=== PATIENT | female | born 2000 | race Two or more races ===

== ENCOUNTER 2018-04-28 16:38 | Emergency (ER) | payer OTHER ==
--- NOTE | 2018-04-28 17:39 | ED ---
GI/ HPI - HPI Summary HPI Summary: This patient is a 17 year old F presenting to [facility] with a chief complaint of gross hematuria that began today at 1200pm. Patient states that the hematuria begin after having sex today. She states it was the second urination after intercourse. Pt states the intercourse was not painful, except that it felt like he "went deep". Pt denies any trauma during intercourse. The patient rates the pain 0/10 in severity at present. Symptoms aggravated by urination. Symptoms alleviated by nothing. Patient reports dysuria, abd pain (resolved), and increased urinary frequency. Patient denies fever, vaginal bleeding, and back pain. Patient denies a history of UTI or kidney stones. Patient reports her last menstrual period occurring on 04/11/2018 was normal. . No hx STD' s. - History of Current Complaint Chief Complaint: EDUrogenitalProblems Time Seen by Provider: 04/28/18 17:29 Stated Complaint: URINATING BLOOD Hx Obtained From: Patient Hx Last Menstrual Period: 04/11/18 Onset/Duration: Started Hours Ago, Atraumatic, Still Present Timing: Constant Severity: Mild Current Severity: Mild Pain Intensity: 0 Location of Pain: Suprapubic - earlier today, resolved now Pain Characteristics: Burning - resolved now Associated Signs and Symptoms: Positive: Hematuria, Dysuria, Abdominal Pain, Other: - Positive increased urinary frequency. Negative vaginal bleeding. Negative: Back Pain, Fever, Dyspureunia Additional Signs & Symptoms: Positive: - 0, Para - 0, First Day of Last Menstral Period - 04/11/18, Menses Regular. Negative: Genital Swelling, Vaginal Bleeding, Vaginal Discharge, STD Aggravating Factor(s): Urination Alleviating Factor(s): Nothing - Allergy/Home Medications Allergies/Adverse Reactions: Allergies Allergy/AdvReac Type Severity Reaction Status Date / Time No Known Allergies Allergy Verified 04/28/18 18:04 PMH/Surg Hx/FS Hx/Imm Hx Previously Healthy: Yes History: Reports: Other Problems/Disorders - Negative UTI Denies: Hx Kidney Stones Opthamlomology History: Denies: Hx Legally Blind EENT History: Denies: Hx Deafness - Surgical History Surgery Procedure, Year, and Place: [place] teeth removal Hx Anesthesia Reactions: No Infectious Disease History: No Infectious Disease History: Denies: Traveled Outside the [place] in Last 30 Days - Family History Known Family History: Positive: Hypertension, Other - Negative kidney stones - Social History Occupation: Student Lives: Dormitory/Roommates Alcohol Use: None Hx Substance Use: No Substance Use Type: Reports: None Hx Tobacco Use: No Smoking Status (MU): Never Smoked Tobacco Review of Systems Negative: Fever Cardiovascular: Negative Respiratory: Negative Positive: Abdominal Pain Genitourinary: Other - Negative vaginal bleeding Positive: dysuria, frequency, hematuria Positive: Other - Negative back pain Skin: Negative Neurological: Negative Psychological: Normal All Other Systems Reviewed And Are Negative: Yes Physical Exam - Summary Physical Exam Summary: Appearance: Well-appearing, no pain distress, well-nourished Skin: Warm, color reflects adequate perfusion, dry Head: Normal Head/Face inspection, atraumatic Eyes: Conjunctiva clear ENT: Normal inspection Neck: Supple, no nodes, no JVD Respiratory: Lungs clear, normal breath sounds, no respiratory distress Cardio: RRR, No murmur, pulses normal, brisk capillary refill Abdomen: Soft, nontender, no masses, no distension Bowel sounds: Present Musculoskeletal: Strength Intact/ROM intact, no calf tenderness, no edema. No CVA tenderness Pelvic Exam: Saundra present as electroencephalographic technician. External genitalia were normal, no blood in vagina, cervix was minimally eroded but was nontender, uterus was normal and nontender. Adnexae without masses or tenderness Psychological: Normal Neuro: Alert, muscle tone normal, no focal deficit Triage Information Reviewed: Yes Vital Signs On Initial Exam: Initial Vitals Temp Pulse Resp BP Pulse Ox 98.2 F 85 14 131/66 100 04/28/18 16:45 04/28/18 16:45 04/28/18 16:45 04/28/18 16:45 04/28/18 16:45 Vital Signs Reviewed: Yes Diagnostics - Vital Signs Vital Signs Temp Pulse Resp BP Pulse Ox 04/28/18 16:45 98.2 F 85 14 131/66 100 - Laboratory Result Diagrams: 04/28/18 17:37 04/28/18 17:37 Lab Statement: Any lab studies that have been ordered have been reviewed, and results considered in the medical decision making process. Re-Evaluation - Re-Evaluation First Eval Re-Evaluation Time: 17:52 Change: Unchanged Comment: Pelvic exam was performed. Second Eval Re-Evaluation Time: 19:23 Change: Improved Comment: Patient is pain free and is agreeable with discharge GIGU Course/Dx - Course Course Of Treatment: This patient is a 17 year old F presenting to [facility] with a chief complaint of hematuria that began today at 1200. Patient states that the hematuria begin after having sex. Physical Exam Findings: Pelvic Exam: Saundra present as electroencephalographic technician. External genitalia were normal, no blood in vagina, cervix was minimally eroded but was nontender, uterus was normal and nontender. Adnexae without masses or tenderness. Bloodwork and UA obtained. Pelvic cultures were sent. WBC count is elevated. Renal function is normal. HCG is negative. Urine has wbc's and rbc's, negative nitrates. Will treat since pt was symptomatic, and had gross hematuria. In the ED course the patient was given Bactrim. Patient will be discharged with prescription for Bactrim and with follow up from [facility]. Pt is advised of pending pelvic cultures and urine culture. The patient is agreeable with this plan. - Diagnoses Differential Diagnoses - Female: Cervicitis, Ovarian Cyst, Pelvic Inflammatory Disease, Pyelonephritis, Renal Calculi, Renal Colic, STD, Urinary Tract Infection, Ureteral Calculi Provider Diagnoses: UTI (urinary tract infection), Hematuria Discharge - Sign-Out/Discharge Documenting (check all that apply): Patient Departure - Discharge home - Discharge Plan Condition: Stable Disposition: HOME Prescriptions: Sulfamethox/Trimethoprim DS* [Bactrim DS 800/160 TAB*] 1 tab PO BID #10 tab Patient Education Materials: Urinary Tract Infection in Women (ED), Hematuria ( ED) Forms: *Physical Education Release [place] [facility] [place] [Primary Care Provider] - 1 Day Additional Instructions: The testing done today showed an elevated white blood cell count, consistent with infection, and also blood and white cells in your urine, consistent with a urinary tract infection. The urine culture is pending at the time you are discharged, and takes about 2 days for the final result. We will contact you if you need additional treatment based on these results. You have been given your first dose of Bactrim DS as the initial treatment for the UTI. You should continue this medication twice a day for 5 full days. There was also blood in your urine, which may be due to the urinary tract infection, but if the blood continues you will need further evaluation for this also. Your kidney function was normal today, and your test was negative. Your pelvic exam was normal today also. There are pelvic cultures pending at the time you are discharged. We will contact you if you need further treatment based on these results also, which should be available in a few days. Dr. Hernandes also recommends that you should have your initial screening PAP smear , which this pelvic exam did not include. Return to the ER if you have any new or worsening symptoms. - Billing Disposition and Condition Condition: STABLE Disposition: Home - Attestation Statements Document Initiated by Any: Yes Documenting Scribe: Lisset Nation Provider For Whom Any is Documenting (Include Credential): Dr. Samantha Hernandes MD Scribe Attestation: Lisset Paz, scribed for Dr. Samantha Hernandes MD on 04/28/18 at 2107. Scribe Documentation Reviewed: Yes Provider Attestation: The documentation as recorded by the Lisset madison accurately reflects the service I personally performed and the decisions made by me, Dr. Samantha Hernandes MD
[2018-04-28 17:51] LABS: ABS Basophils 0.1 10^3/ul (0-0.2); ABS Eosinophils 0.1 10^3/ul (0-0.6); ABS Lymphocytes 1.8 10^3/ul (1.0-4.8); ABS Monocytes 1.1 10^3/ul (0-0.8); ABS Neutrophils 10.8 10^3/ul (1.5-7.7); ABS Nucleated RBC 0 10^3/ul; Eosinophil % 1.1 % (0-6); Hematocrit 39 % (35-47); Hemoglobin 12.5 g/dl (12.0-16.0); Lymphocyte % 13.2 % (25-47); Mean Corpuscular HGB Conc 32 g/dl (31-36); Mean Corpuscular Hemoglobin 26 pg (27-31); Mean Corpuscular Volume 82 fL (80-97); Mean Platelet Volume 9.2 um3 (7.4-10.4); Nucleated Red Blood Cells % 0; Platelet Count 199 10^3/ul (150-450); Red Blood Count 4.79 10^6/ul (4.00-5.40); Red Cell Distribution Width 14 % (10.5-15)
[2018-04-28 18:07] LABS: EGFR Non-African American 79.6 (>60)
[2018-04-28 18:26] LABS: Urine Appearance Cloudy; Urine Blood 3+ (Negative); Urine Color Yellow; Urine Ketones Negative (Negative); Urine Protein 2+(100 mg/dL) (Negative); Urine Red Blood Cell 3+(>10/hpf) (Absent); Urine Specific Gravity 1.025 (1.010-1.030); Urine Urobilinogen Negative (Negative); Urine White Blood Cell 3+(>20/hpf) (Absent)
[2018-04-28] MEDS ORDERED: Sulfamethox/Trimethoprim DS 800/160* TAB PO ONE (19:16)
[2018-04-28 19:53] VITALS: BP 107/62
--- NOTE | 2018-05-01 10:57 | PN ---
Progress Note - Progress Note Date of Service: 04/28/18 Note: Pt. seen in ED 04/28 and started on Bactrim for UTI. Final urine culture today growing e. coli susceptible to bactrim. No change in treatment needed at this time.
== END 2018-04-28 19:50 | disposition home or self-care (01) ==
LOC: ED 16:38
DX: N39.0 Urinary tract infection, site not specified (principal); B96.20 Unspecified Escherichia coli [E. coli] as the cause of diseases classified elsewhere; R31.9 Hematuria, unspecified
CPT/HCPCS: 36415; 80053; 81003; 81015; 83605; 84702; 85025; 86140; 87077; 87086; 87186; 87480; 87491; 87510; 87591; 87661; 99283; A9270-GY

== ENCOUNTER 2019-05-12 20:45 | Emergency (ER) | payer OTHER ==
[2019-05-12] MEDS ORDERED: diPHENhydraMINE IV* 50 MG/ML 1 ml VIAL (BENADRYL) IV ONE (23:17)
[2019-05-12] MEDS ORDERED: NS 0.9% 1000 ML** 2,000 ML IV ONE (23:17)
[2019-05-12] MEDS ORDERED: Ketorolac INJ* 30 MG/ML 1 ML VIAL IV PUSH ONE (23:17)
[2019-05-12] MEDS ORDERED: PROCHLORPERAZINE INJ 5 MG/ML 2 ML VIAL IV ONE (23:17)
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
[2019-05-13 00:52] VITALS: BP 117/72
== END 2019-05-13 00:51 | disposition home or self-care (01) ==
LOC: ED 20:45
DX: F07.81 Postconcussional syndrome (principal); R51 Headache; H53.149 Visual discomfort, unspecified
CPT/HCPCS: 70450; 96361; 96374; 96375; 99282; J0780; J1200; J1885